=== PATIENT | male | born 1990 | race Caucasian/White ===

== ENCOUNTER → 2018-07-26 09:47 | Outpatient (CLI) | payer BC, SELFPAY ==
[2018-07-26 10:33] LABS: Cholesterol 228 mg/dL (200); Glucose 86 mg/dL (74-106)
== END ==
PROVIDERS: Family Provider Family Medicine; PCP Family Medicine; Visit Provider Nurse Practitioner Family
DX: Z00.00 Encounter for general adult medical examination without abnormal findings (principal)
CPT/HCPCS: 36415; 82465; 82947

== ENCOUNTER → 2019-07-11 | Outpatient (CLI) | payer BC, SELFPAY ==
[2019-07-11 10:32] LABS: Anion Gap 8 (5-15); BUN 10 mg/dL (7-18); BUN/Creat Ratio 9.6 RATIO (10-20); Calcium,Total 8.9 mg/dL (8.5-10.1); Chloride 109 mmol/L (98-107); Cholesterol 201 mg/dL (200); Creatinine, Serum 1.04 mg/dL (0.70-1.30); EST Glomerular Filtration Rate 88 mL/min (>60); Est Glom Filt Rate - Afr Amer 107 mL/min (>60); Glucose 81 mg/dL (74-106); High Density Lipoprotein 28 mg/dL; Potassium 4.1 mmol/L (3.5-5.1); Sodium Level 144 mmol/L (136-145); Triglycerides 311 mg/dL; Very Low Density Lipoprotein 62 mg/dL (5-40)
== END | disposition home or self-care (01) ==
LOC: LAB.FUTURE 09:02 → LAB 10:53
PROVIDERS: Family Provider Family Medicine; PCP Family Medicine; Referring Provider Family Medicine; Visit Provider Family Medicine
DX: E78.5 Hyperlipidemia, unspecified (principal)
CPT/HCPCS: 36415; 80048; 80061

== ENCOUNTER → 2020-08-13 10:11 | Outpatient (CLI) | payer BC, SELFPAY ==
[2020-08-13 11:13] LABS: Anion Gap 2 (5-15); BUN 12 mg/dL (7-18); BUN/Creat Ratio 11.4 RATIO (10-20); Calcium,Total 8.8 mg/dL (8.5-10.1); Chloride 111 mmol/L (98-107); Cholesterol 212 mg/dL (200); Creatinine, Serum 1.05 mg/dL (0.70-1.30); EST Glomerular Filtration Rate 87 mL/min (>60); Est Glom Filt Rate - Afr Amer 105 mL/min (>60); Glucose 85 mg/dL (74-106); High Density Lipoprotein 36 mg/dL; Potassium 4.2 mmol/L (3.5-5.1); Sodium Level 143 mmol/L (136-145); Triglycerides 183 mg/dL; Very Low Density Lipoprotein 37 mg/dL (5-40)
[2020-08-17 08:12] LABS: Vitamin D,25 Hydroxy 26.3 ng/mL
== END ==
PROVIDERS: PCP Family Medicine; Referring Provider Family Medicine; Visit Provider Family Medicine
DX: Z00.00 Encounter for general adult medical examination without abnormal findings (principal)
CPT/HCPCS: 36415; 80048; 80061; 82306

== ENCOUNTER → 2021-08-05 | Outpatient (CLI) | payer BC, SELFPAY ==
[2021-08-05 09:53] LABS: Hemoglobin A1c 5.1 % (3.8-5.6)
[2021-08-05 09:58] LABS: Cholesterol 215 mg/dL (200); High Density Lipoprotein 31 mg/dL; Triglycerides 356 mg/dL; Very Low Density Lipoprotein 71 mg/dL (5-40)
== END | disposition home or self-care (01) ==
PROVIDERS: PCP Family Medicine; Referring Provider Family Medicine; Visit Provider Family Medicine
DX: E78.5 Hyperlipidemia, unspecified (principal)
CPT/HCPCS: 36415; 80061; 83036

== ENCOUNTER → 2024-07-10 | Outpatient (CLI) | payer BC, SELFPAY ==
[2024-07-10 12:59] LABS: Anion Gap 5 (5-15); BUN 12 mg/dL (7-18); BUN/Creat Ratio 11.7 RATIO (10-20); Calcium,Total 9.3 mg/dL (8.5-10.1); Chloride 108 mmol/L (98-107); Cholesterol 217 mg/dL (200); Creatinine, Serum 1.03 mg/dL (0.70-1.30); EST Glomerular Filtration Rate 87 mL/min (>60); Est Glom Filt Rate - Afr Amer 105 mL/min (>60); Glucose 93 mg/dL (74-106); High Density Lipoprotein 34 mg/dL; Potassium 3.8 mmol/L (3.5-5.1); Sodium Level 139 mmol/L (136-145); Triglycerides 170 mg/dL; Very Low Density Lipoprotein 34 mg/dL (5-40)
== END | disposition home or self-care (01) ==
LOC: MTLAB 09:55
PROVIDERS: PCP Family Medicine; Referring Provider Family Medicine; Visit Provider Family Medicine
DX: Z00.00 Encounter for general adult medical examination without abnormal findings (principal)
CPT/HCPCS: 36415; 80048; 80061

== ENCOUNTER → 2025-07-09 | Outpatient (CLI) | payer BC, SELFPAY ==
--- OUTSIDE RECORDS SUMMARY | 2025-07-09 15:46 | XMS RPT_ITS | CCD ---
Author Organization [facility] Inform ion Partnership SNACK BAR ATTENDANT [facility] Care Team Providers Care Hand Tube Bender Name Role Phone Lio Romero Primary Care Provider MANOJ Mayo Attending LIO Davis Primary Care MANOJ Murillo Attending LIO Mistry Primary Care UnavailLio Whitaker Attending Unavailable Lio Jeff Referring Lio Torres Primary Care Unavailable Medications Completed/Discontinued Medications Medication Drug Class(es) Dates Sig (Normalized) Sig (Original) benzoyl peroxide 40 mg/ml medicated liquid soap (3 sources) Start: 03-18-2006 BREVOXYL-4 CREAMY WASH 4 % TOPICAL LIQUID wash face daily large size 6 03/18/2006 Active Comment on above: wash face daily benzoyl peroxide 0.05 mg/mg / clindamycin phosphate 0.012 mg/mg topical gel (3 sources) Lincosamide Antibacterial Start: 03-18-2006 DUAC 1 %-5 % TOPICAL GEL apply to affected areas on face once in the morning large size tube 12 03/18/2006 Active Comment on above: apply to affected ar eas on face once in the morning Lidocaine (1 source) Antiarrhythmic, Amide Local Anesthetic Start: 06-13-2023 End: 06-13-2023 lidocaine 10 mg/mL (1 %) 100 mg injection (XYLOCAINE) tretinoin 0.0004 mg/mg topical gel (3 sources) Retinoid Start: 03-18-2006 RETIN-A MICRO 0.04 % TOPICAL GEL apply to face top qhs large size tube 12 03/18/2006 Active Comment on above: apply to face top qh s Problems Problem Classification Problem Date Documented Da te Episodic/Chronic Contraceptive and procreative management (3 sources) Patient encounter status; Translations: [Encounter for sterilization] Onset: 05-29-2023 06-13-2023 Episodic Other skin disorders (3 sources) Acne; Translations: [Other acne] Onset: 05-11-2004 05-11-2004 Episodic Results Test Name Value Interpretation Reference Range Facil ity Basic Metabolic Profile (BMP )on 07-10-2024 BUN/CRE 11.7 RATIO Normal 10-20 [facility] Comment on above: Performed By: #### L 500.4100, L500.2500 #### [facility] [address] [place], [address] CA,Total 9.3 mg/dL Normal 8.5-10.1 [facility] Comment on above: Performed By: #### L 500.4100, L500.2500 #### [facility] [address] [place], [address] Chloride [Moles/Vol] 108 mmol/L High 98-107 [facility] Comment on above: Performed By: #### L 500.4100, L500.2500 #### [facility] [address] [place], [address] CO2 [Moles/Vol] 26.0 mmol/L Normal 21.0-32.0 [facility] Comment on above: Performed By: #### L 500.4100, L500.2500 #### [facility] [address] [place], [address] Creatinine [Mass/Vol] 1.03 mg/dL Normal 0.70-1.30 [facility] Comment on above: Result Comment: The validity of the calculated GFR GFRAA in patients over 70 years has not been determined. Clinical correlation is essential. Performed By: #### L 500.4100, L500.2500 #### [facility] [address] [place], [address] EST GFR - AA 105 mL/min Normal >60 [facility] Comment on above: Result Comment: Afri can Taiwanese GFR Calc Performed By: #### L 500.4100, L500.2500 #### [facility] [address] [place], [address] GAP 5 Normal 5-15 [facility] Comment on above: Performed By: #### L 500.4100, L500.2500 #### [facility] [address] [place], [address] GFR/1.73 sq M.predicted among non-blacks MDRD (S/P/Bld) [Vol rate/Area] 87 mL/min/{1.73_m2} Normal >60 [facility] Comment on above: Result Comment: Non- GFR Calc Performed By: #### L 500.4100, L500.2500 #### [facility] [address] [place], [address] Glucose [Mass/Vol] 93 mg/dL Normal 74-[address] [facility] Comment on above: Performed By: #### L 500.4100, L500.2500 #### [facility] [address] [place], [address] Potassium [Moles/Vol] 3.8 mmol/L Normal 3.5-5.1 [facility] Comment on above: Performed By: #### L 500.4100, L500.2500 #### [facility] [address] [place], [address] Sodium [Moles/Vol] 139 mmol/L Normal 136-[address] [facility] Comment on above: Performed By: #### L 500.4100, L500.2500 #### [facility] [address] [place], [address] Urea nitrogen [Mass/Vol] 12 mg/dL Normal 7-18 [facility] Comment on above: Performed By: #### L 500.4100, L500.2500 #### [facility] [address] [place], [address] Lipid Profileon 07-10-2024 Cholesterol [Mass/Vol] 217 mg/dL High 200 [facility] Comment on above: Result Comment: <200 mg/dL Desirable 200-240 mg/dL Borderline >240 mg/dL High Risk Performed By: #### L 500.4100, L500.2500 #### [facility] [address] [place], [address] Cholesterol in HDL [Mass/Vol] 34 mg/dL Low [facility] Comment on above: Result Comment: The drugs N-Acetylcysteine and Metamizole may falsely depress this assay. Reference Range HDL <40 mg/dL Low HDL Cholesterol HDL >or= 60 mg/dL High HDL Cholesterol Performed By: #### L 500.4100, L500.2500 #### [facility] [address] [place], [address] Cholesterol in LDL [Mass/Vol] 149 mg/dL High 0-130 [facility] Comment on above: Performed By: #### L 500.4100, L500.2500 #### [facility] [address] [place], [address] Cholesterol in VLDL [Mass/Vol] 34 mg/dL Normal 5-40 [facility] Comment on above: Performed By: #### L 500.4100, L500.2500 #### [facility] [address] [place], [address] Triglyceride [Mass/Vol] 170 mg/dL Normal [facility] Comment on above: Result Comment: The drugs N-Acetylcysteine and Metamizole may falsely depress this assay. Serum Triglycerides Reference Interval Normal <150 mg/dL Borderline high 150 - 199 mg/dL High 200 - 499 mg/dL Very High > or = 500 mg/dL Performed By: #### L 500.4100, L500.2500 #### [facility] [address] [place], [address] [facility]il[facility] DELBERT ABERNATHY ([id number]) 1990 M Date Time Provider Department 09/13/23 MANOJ COLES During your visit today, we recorded the following information about you: Laina Marx RN 09/13/2023 12:10 PM Signed Patient called in and left voicemail asking if his basic semen analysis could be changed to post vasectomy check' Thanks, LOUISE Richardson Rebecca, LPN 09/13/2023 1:[address] Coles, Can you sign the order I have attached. The diagnosis is post vasectomy. This is a standard order we use. RODRIGUEZ Paris Rebecca, LPN 09/16/2023 8:59 AM Signed The one I attached is the one we always use. It's the diagnosis that matters for insurance purposes. RODRIGUEZ Paris Rebecca, LPN 09/16/2023 4:03 PM Signed Mailed order to patient Yolanda Gurrola LPN Allergies As of Date: 09/13/2023 (No Known Allergies) Date Reviewed: 06/13/2023 Reviewed by: Yolanda Gurrola LPN - Fully Assessed Reason for Visit: Patient Question [1477] Cmt: New order for semen analysis Primary Visit Diagnosis:Status post vasectomy [Z98.52] Order(s):BASIC SEMEN ANALYSIS [SQBASA] Order #: [id number]: 1 FUTURE Prescriptions as of 09/16/2023 - RETIN-A MICRO 0.04 % TOPICAL GEL apply to face top qhs - DUAC 1 %-5 % TOPICAL GEL apply to affected areas on face once in the morning - BREVOXYL-4 CREAMY WASH 4 % TOPICAL LIQUID wash face daily Problem List As Of Date 09/13/2023 Noted Resolved ACNE NEC [L70.8] 05/11/2004 Encounter Status:Closed by MANOJ COLES on 09/13/23 [facility] CNOVon 06-13-2023 CNOV Office Visit (UROLAG ) DELBERT ABERNATHY ([id number]) 1990 M Date Time Provider Department 06/13/23 2:00 PM MANOJ COLES UROLAG During your visit today, we recorded the following information about you: Pulse Blood pressure Height 97/minute 144/91 1.829 m Manoj Coles MD 06/13/2023 3:10 PM Signed 06/13/2023 UNIVERSAL PROTOCOL / SAFETY CHECKLIST Procedure to be Performed: vas Sign In: A Moment of CARE was completed. Personnel directly involved with the procedure wore the appropriate PPE (Personal Protective Equipment). Patient/Surrogate Stated/Verified: PATIENT VERIFIED(optional for EMERGENT procedures): Patient name, Date of , Relevant allergies, and The intended procedure Time Out Communication: Intended patient and procedure match the source documents. Consent documented and matches the intended procedure. Relevant labs, photos, and/or imaging studies have been reviewed. Sign Out: SIGN OUT (optional for EMERGENT procedures): No specimen collected. Manoj Coles MD HPI: 33 year old male reports for vasectomy. He again confirms he desires permanent sterilization and has no desire to father children in the future. Procedure: Vasectomy Anatomic Site: Vas Deferens Approach: Percutaneous Device: None Qualifier: None PMHx/PSHx: see above, otherwise unchanged Rx: No scheduled NSAIDs or blood thinner for past 5 days. ROS: No new or inguinal complaints Labs: None Imaging: None PE: General: Well masculinized, well nourished male Psych: euthymic, NAD Neuro: AANDOx3 exam: see below. Procedure: Vasectomy Patient?s identity was confirmed, written informed consent was obtained, and the time out performed before the procedure was initiated The patient was placed in a supine position and the genitalia were prepped and draped in a sterile manner. Examination revealed no scrotal lesions, descended testicles bilaterally without masses and readily palpable vasa deferens. The right scrotal skin and cord structures was anesthetized with 5 cc of 2% lidocaine without epinephrine. A No-scapel technique was used to isolated and remove a small portion of the vas deferens. The vas sheath was opened. The vas deferens was clamped and ligated. The inner lumina of the testicular and abdominal ends of the vas were cauterized. Clips were applied to the testicular end of the vas and to the abdominal end. Adequate hemostasis was achieved. Both ends of the vas deferens were delivered back into the scrotum by fascia.The procedure was repeated on the patient?s left side. The patient tolerated the procedure well. Postoperative care, limitations, and expectations were reviewed with the patient. He was again instructed to use an alternate form of control until he is notified that his postprocedure semen analysis reveals no sperm. Imp: S/p vasectomy Plan: Supply Semen sample for analysis in 3 months Follow up as needed Manoj Coles MD Allergies As of Date: 06/13/2023 (No Known Allergies) Date Reviewed: 06/13/2023 Reviewed by: Yolanda Gurrola LPN - Fully Assessed Reason for Visit: Sterilization (Elective) [340] Cmt: vasectomy Primary Visit Diagnosis:Encounter for sterilization [Z30.2] Order(s):BASIC SEMEN ANALYSIS [SQBASA] Order #: [id number]: 1 FUTURE [] lidocaine 10 mg/mL (1 %) 100 mg injection (XYLOCAINE)Disp: Rfl: Prescriptions as of 06/13/2023 - RETIN-A MICRO 0.04 % TOPICAL GEL apply to face top qhs - DUAC 1 %-5 % TOPICAL GEL apply to affected areas on face once in the morning - BREVOXYL-4 CREAMY WASH 4 % TOPICAL LIQUID wash face daily Problem List As Of Date 06/13/2023 Noted Resolved ACNE NEC [L70.8] 05/11/2004 Prescriptions ordered this encounter Disp Refills Start End LIDOCAINE HCL 10 MG/ML (1 %) INJECTI* 06/13/2023 06/13/2023 Route: INTRADERM. Encounter Status:Closed by MANOJ COLES on 06/13/23 [facility] CNOVon 05-29-2023 CNOV Office Visit (URCANT ) DELBERT ABERNATHY ([id number]) 1990 M Date Time Provider Department 05/29/23 1:00 PM MANOJ COLES During your visit today, we recorded the following information about you: Pulse Blood pressure Weight Height 79/minute 157/90 128.9 kg 1.829 m Manoj Coles MD 05/29/2023 1:15 PM Signed Delbert Abernathy is a 33 year old male who presents with discuss and no cut vasectomy he will bring a bag ice with him some will drive him. He will get 3 Halcion he might only take 2. We talked about good that overmedicate him. Also he will have 5 days of Keflex to take 1 in the morning 1 during lunch and then will do the vas. Both his vas is are easy to palpate scrotum hangs down pretty good Review of Systems- Reviewed and otherwise non-contributory. BP 157/90 (BP Site: Right Arm, BP Position: Sitting, BP Cuff Size: Large Adult) Pulse 79 Ht 182.9 cm (6') Wt 128.9 kg (284 lb 3.2 oz) BMI 38.54 kg/m? History reviewed. No pertinent past medical history. PAST SURGICAL HISTORY Procedure Laterality Date NONE Current Outpatient Medications Medication Sig Dispense Refill triazolam (HALCION) 0.25 mg tablet 3 tablet PO Q-1 hour prior to procedure 3 tablet 0 cephALEXin (KEFLEX) 500 mg capsule Take 1 capsule by mouth four times daily for 5 days. 20 capsule 0 RETIN-A MICRO 0.04 % TOPICAL GEL apply to face top qhs large size tube 12 DUAC 1 %-5 % TOPICAL GEL apply to affected areas on face once in the morning large size tube 12 BREVOXYL-4 CREAMY WASH 4 % TOPICAL LIQUID wash face daily large size 6 No current facility-administered medications for this visit. (Z30.2) Encounter for sterilization (primary encounter diagnosis) Plan: triazolam (HALCION) 0.25 mg tablet, cephALEXin (KEFLEX) 500 mg capsule Manoj Coles MD This note was generated with voice recognition software and may contain errors, including spelling, grammar, syntax and misrecognition of what was dictated, that are not fully corrected. Allergies As of Date: 05/29/2023 (No Known Allergies) Date Reviewed: 05/29/2023 Reviewed by: Yolanda Gurrola LPN - Fully Assessed Reason for Visit: New Patient [172] Sterilization (Elective) [340] Cmt: Vas consult Primary Visit Diagnosis:Encounter for sterilization [Z30.2] Order(s):triazolam (HALCION) 0.25 mg tablet3 tablet PO Q-1 hour prior to procedureDisp: 3 tabletRfl: 0 cephALEXin (KEFLEX) 500 mg capsuleTake 1 capsule by mouth four times daily for 5 days.Disp: 20 capsuleRfl: 0 Prescriptions as of 05/29/2023 - triazolam (HALCION) 0.25 mg tablet 3 tablet PO Q-1 hour prior to procedure - cephALEXin (KEFLEX) 500 mg capsule Take 1 capsule by mouth four times daily for 5 days. - RETIN-A MICRO 0.04 % TOPICAL GEL apply to face top qhs - DUAC 1 %-5 % TOPICAL GEL apply to affected areas on face once in the morning - BREVOXYL-4 CREAMY WASH 4 % TOPICAL LIQUID wash face daily Problem List As Of Date 05/29/2023 Noted Resolved ACNE NEC [L70.8] 05/11/2004 Prescriptions ordered this encounter Disp Refills Start End TRIAZOLAM 0.25 MG TABLET 3 ta* 0 05/29/2023 05/30/2023 Si tablet PO Q-1 hour prior to procedure CEPHALEXIN 500 MG CAPSULE 20 c* 0 05/29/2023 06/03/2023 Route: ORAL Sig: Take 1 capsule by mouth four times daily for 5 days. Disposition: Return for vas. Follow-up and Disposition History for Encounter Date Provider Department Center 05/29/2023 [id number]-HNEUCMANOJ COLES *CHERI Salgado MD [facility] Encounter Status:Closed by MANOJ COLES on 05/29/23 [facility] CNOVon 05-26-2019 CNOV Office Visit (UCWSTR ) DELBERT ABERNATHY ([id number]) 1990 M Date Time Provider Department 05/26/19 8:00 AM KARINA MOY [facility] During your visit today, we recorded the following information about you: Temperature Pulse Respiration Blood pressure 98.1 degrees 72/minute 16/minute 122/80 Weight 124.8 kg Karina Moy [employer] 05/26/2019 8:26 AM Signed Subjective HPI Pt presents with c/o right eye drainage x several days. Had leftover polytrim from daughter's pink eye a month ago so he began using drops yesterday. Denies fever, chills, myalgias, eye pain, vision change, URI sx. Review of Systems Constitutional: Negative for chills and fever. HENT: Negative. Eyes: Positive for discharge and redness. Negative for blurred vision, double vision, photophobia and pain. Skin: Negative. Objective Physical Exam Constitutional: He is oriented to person, place, and time and well-developed, well-nourished, and in no distress. No distress. HENT: Head: Normocephalic. Right Ear: Hearing, tympanic membrane, external ear and ear canal normal. Left Ear: Hearing, tympanic membrane, external ear and ear canal normal. Nose: Nose normal. No mucosal edema. Mouth/Throat: Uvula is midline, oropharynx is clear and moist and mucous membranes are normal. No oropharyngeal exudate. Eyes: Pupils are equal, round, and reactive to light. EOM are normal. Right eye exhibits no discharge. Left eye exhibits no discharge. Right conjunctiva is injected (mild). Left conjunctiva is injected (mild). Pupils unequal: vision 20/20 via lb card. Neck: Neck supple. Cardiovascular: Normal rate, regular rhythm and normal heart sounds. Exam reveals no gallop and no friction rub. No murmur heard. Pulmonary/Chest: Effort normal and breath sounds normal. No respiratory distress. He has no wheezes. He has no rales. Neurological: He is alert and oriented to person, place, and time. Skin: Skin is warm and dry. He is not diaphoretic. BP 122/80 Pulse 72 Temp 36.7 ?C (98.1 ?F) (Tympanic) Resp 16 Wt 124.8 kg (275 lb 3.2 oz) .Patient presents with: right eye irritation: x 1 day No past medical history on file. No past surgical history on file. ALLERGIES Patient has no known allergies. MEDICATIONS trimethoprim-polymyxi n eye drops (POLYTRIM) ophthalmic solution Use 1 Drop in both eyes every 6 hours for 7 days. Use in the affected eye. RETIN-A MICRO 0.04 % TOPICAL GEL apply to face top qhs DUAC 1 %-5 % TOPICAL GEL apply to affected areas on face once in the morning BREVOXYL-4 CREAMY WASH 4 % TOPICAL LIQUID wash face daily No family history on file. Social History Tobacco Use - Smoking status: Never Smoker - Smokeless tobacco: Never Used Substance Use Topics - Alcohol use: Not on file - Drug use: Not on file ASSESSMENT/PLAN: 1. Eye irritation - ICD9: 379.99, ICD10: H57.89 - POLYMYXIN B SULFATE 10,000 UNIT-TRIMETHOPRIM 1 MG/ML EYE DROPS The patient is instructed to return or seek emergency treatment if symptoms become worse or with any acute change in condition. The patient verbalizes understanding and is in agreement with plan of care. Karina Moy CNP Referring Provider: SELF [200] Allergies As of Date: 05/26/2019 (No Known Allergies) Date Reviewed: 05/26/2019 Reviewed by: Wilda Lewis LPN - Fully Assessed Reason for Visit: right eye irritation [Other] Cmt: x 1 day Primary Visit Diagnosis:Eye irritation [H57.89] Order(s):trimethoprim -polymyxin eye drops (POLYTRIM) ophthalmic solutionUse 1 Drop in both eyes every 6 hours for 7 days. Use in the affected eye.Disp: 1.4 mLRfl: 0 Prescriptions as of 05/26/2019 Sig: POLYMYXIN B SULFATE 10,000 UN* Use 1 Drop in both eyes every* * RETIN-A MICRO 0.04 % TOPICAL * apply to face top qhs Patient not taking: No sig reported * DUAC 1.2 % (1 % BASE)-5 % TOP* apply to affected areas on fa* Patient not taking: No sig reported * BREVOXYL-4 CREAMY WASH 4 % TO* wash face daily Patient not taking: No sig reported Problem List As Of Date 05/26/2019 Noted Resolved ACNE NEC [L70.8] INVALID FOR* Prescriptions ordered this encounter Disp Refills Start End POLYMYXIN B SULFATE 10,000 UNIT-TRIM* 1.4 * 0 05/26/2019 06/02/2019 Route: BOTH EYES Sig: Use 1 Drop in both eyes every 6 hours for 7 days. Use in the affected eye. Encounter Status:Closed by KARINA MOY CNP on 05/26/19 Normal [facility] PROGRESSon 05-26-2019 PROGRESS HNO ID: [id number] Author: Karina Moy Service: ? Author Type: Nurse Practitioner Type: Progress Notes Filed: 05/26/2019 8:26 AM Note Text: Subjective HPI Pt presents with c/o right eye drainage x several days. Had leftover polytrim from daughter's pink eye a month ago so he began using drops yesterday. Denies fever, chills, myalgias, eye pain, vision change, URI sx. Review of Systems Constitutional: Negative for chills and fever. HENT: Negative. Eyes: Positive for discharge and redness. Negative for blurred vision, double vision, photophobia and pain. Skin: Negative. Objective Physical Exam Constitutional: He is oriented to person, place, and time and well-developed, well-nourished, and in no distress. No distress. HENT: Head: Normocephalic. Right Ear: Hearing, tympanic membrane, external ear and ear canal normal. Left Ear: Hearing, tympanic membrane, external ear and ear canal normal. Nose: Nose normal. No mucosal edema. Mouth/Throat: Uvula is midline, oropharynx is clear and moist and mucous membranes are normal. No oropharyngeal exudate. Eyes: Pupils are equal, round, and reactive to light. EOM are normal. Right eye exhibits no discharge. Left eye exhibits no discharge. Right conjunctiva is injected (mild). Left conjunctiva is injected (mild). Pupils unequal: vision 20/20 via lb card. Neck: Neck supple. Cardiovascular: Normal rate, regular rhythm and normal heart sounds. Exam reveals no gallop and no friction rub. No murmur heard. Pulmonary/Chest: Effort normal and breath sounds normal. No respiratory distress. He has no wheezes. He has no rales. Neurological: He is alert and oriented to person, place, and time. Skin: Skin is warm and dry. He is not diaphoretic. BP 122/80 Pulse 72 Temp 36.7 ?C (98.1 ?F) (Tympanic) Resp 16 Wt 124.8 kg (275 lb 3.2 oz) .Patient presents with: right eye irritation: x 1 day No past medical history on file. No past surgical history on file. ALLERGIES Patient has no known allergies. MEDICATIONS trimethoprim-polymyxi n eye drops (POLYTRIM) ophthalmic solution Use 1 Drop in both eyes every 6 hours for 7 days. Use in the affected eye. RETIN-A MICRO 0.04 % TOPICAL GEL apply to face top qhs DUAC 1 %-5 % TOPICAL GEL apply to affected areas on face once in the morning BREVOXYL-4 CREAMY WASH 4 % TOPICAL LIQUID wash face daily No family history on file. Social History Tobacco Use - Smoking status: Never Smoker - Smokeless tobacco: Never Used Substance Use Topics - Alcohol use: Not on file - Drug use: Not on file ASSESSMENT/PLAN: 1. Eye irritation - ICD9: 379.99, ICD10: H57.89 - POLYMYXIN B SULFATE 10,000 UNIT-TRIMETHOPRIM 1 MG/ML EYE DROPS The patient is instructed to return or seek emergency treatment if symptoms become worse or with any acute change in condition. The patient verbalizes understanding and is in agreement with plan of care. Karina Moy CNP Normal [facility] Vital Signs Date Time Vital Sign Value Performing Clinician Tristai joss 06-13-2023 14:29-0400 Body height 182.9 cm Manoj Coles MD Work Phone: [facility] 06-13-2023 14:29-0400 Diastolic blood pressure 91 mm[Hg] Manoj Coles MD Work Phone: [facility] 06-13-2023 14:29-0400 Heart rate 97 /min Manoj Coles MD Work Phone: [facility] 06-13-2023 14:29-0400 Systolic blood pressure 144 mm[Hg] Manoj Coles MD Work Phone: [facility] Encounters Encounter Date Encounter Type Care Provider Facility Start: 07-24-2024 Encounter for genera l adult medical examination without abnormal findings Lio Jeff [facility] Start: 07-10-2024 End: 07-10-2024 ambulatory [facility] Facility:[facility] Start: 09-13-2023 ambulatory Manoj Coles MD Work Phone: Urology Comment on above: Post vasectomy sampl e locations Start: 09-13-2023 E-mail encounter fro m caregiver Manoj Coles MD Work Phone: [employer] [employer] Start: 09-13-2023 Telephone encounter Manoj Coles MD Work Phone: Urology Comment on above: Patient Question (Ne w order for semen analysis) Start: 06-13-2023 End: 06-13-2023 ambulatory MANOJ COLES Facility:[facility] Start: 06-13-2023 End: 06-13-2023 Patient encounter procedure Manoj Coles MD Work Phone: Urology Comment on above: Encounter for steril ization (Primary Dx) Start: 05-29-2023 End: 05-29-2023 ambulatory MANOJ COLES Facility:[id number] Procedures Date Procedure Procedure Detail Performing Clinician Start: 06-13-2004 Lipid 1996 panel - Serum or Plasma Manoj Coles MD Work Phone: H/O: vasectomy Status post vasectomy Mehul Coles MD Work Phone: Plan of Treatment Date Care Activity Detail Author Start: 09-27-2023 End: 12-27-2023 BASIC SEMEN ANALYSIS BASIC SEMEN ANALYSIS Andrology Routine Status post vasectomy Expected: 09/27/2023 (Approximate), Expires: 12/27/2023 [facility] Work Phone: Comment on above: Expected: 09/27/2023 (Approximate), Expires: 12/27/2023 Start: 09-13-2023 End: 11-13-2023 BASIC SEMEN ANALYSIS BASIC SEMEN ANALYSIS Andrology Routine Encounter for sterilization Expected: 09/13/2023 (Approximate), Expires: 11/13/2023 [facility] Work Phone: Comment on above: Expected: 09/13/2023 (Approximate), Expires: 11/13/2023 Start: 07-12-2023 Influenza vaccination C [facility] Start: 01-21-2023 Lipid 1996 panel - Serum or Plasma Lipid Screening [facility] Start: 01-21-2023 LIPID SCREEN LIPID SCREEN [facility] Start: 11-11-2022 DEPRESSION ASSESSMENT DEPRESSION ASS ESSMENT [facility] Start: 01-21-2007 Urine microalbumin profile [facility] Start: 01-21-2006 HEPATITIS C SCREENING HEPATITIS C SC REENING [facility] Start: 01-21-2006 HIV SCREENING HIV SCREENING [facility] Start: 1988 COVID-19 VACCINE (#1) COVID-19 VACCI NE (#1) [facility] Start: 1988 HEPATITIS B (1 of 3 - 3-dose series) HEPATITIS B (1 of 3 - 3-dose series) [facility] Start: 1988 Hepatitis B Vaccine (1 of 3 - 3-dose series) Hepatitis B Vaccine (1 of 3 - 3-dose series) [facility] Payers Date Payer Category Payer Self-pay 2011 Unknown [employer] PPO OOS [id number] 2011-Present [phone] [id number] [place] [address] PPO [id number] 2011 Unknown [id number] Unknown [id number] Social History Date Type Detail Facility Start: 05-29-2023 Tobacco smoking stat us VTIS Never smoked tobacco [facility] Start: 05-29-2023 Tobacco use and exposure Smoke less tobacco non-user [facility] Start: 06-13-2023 Alcohol intake Current drinke r of alcohol (finding) [facility] Start: 06-13-2023 History of Social function [facility] Start: 06-13-2023 Tobacco use panel [facility] National Score (1-10 0), lower number is lower risk 69 [facility] Start: 05-29-2023 Alcohol Comment maybe socially if th at [facility] Start: 1988 Sex Assigned At Not on file C [facility] Note 09-13-2023 Telephone Encounter - Yolanda Gurrola LPN - 09/13/2023 1:57 PM EDTTelephone Encounter - Laina Marx RN - 09/13/2023 12:09 PM EDT Note Date & Type Note Facility 09-13-2023 Miscellaneous Notes Formattin g of this note might be different from the original. Dr. Coles, Can you sign the order I have attached. The diagnosis is post vasectomy. This is a standard order we use. Yolanda Gurrola LPN Patient called in and left voicemail asking if his basic semen analysis could be changed to post vasectomy check' Thanks, Laina Marx, RN documented in this encounter [facility] Procedure note 06-13-2023 Note Date & Type Note Facility 06-13-2023 Note HNO ID: [id number] Author: Manoj Coles MD Service: ? Author Type: Physician Type: Procedures Filed: 06/13/2023 3:10 PM Note Text: 06/13/2023 UNIVERSAL PROTOCOL / SAFETY CHECKLIST Procedure to be Performed: vas Sign In: A Moment of CARE was completed. Personnel directly involved with the procedure wore the appropriate PPE (Personal Protective Equipment). Patient/Surrogate Stated/Verified: PATIENT VERIFIED(optional for EMERGENT procedures): Patient name, Date of , Relevant allergies, and The intended procedure Time Out Communication: Intended patient and procedure match the source documents. Consent documented and matches the intended procedure. Relevant labs, photos, and/or imaging studies have been reviewed. Sign Out: SIGN OUT (optional for EMERGENT procedures): No specimen collected. Manoj Coles MD HPI: 33 year old male reports for vasectomy. He again confirms he desires permanent sterilization and has no desire to father children in the future. Procedure: Vasectomy Anatomic Site: Vas Deferens Approach: Percutaneous Device: None Qualifier: None PMHx/PSHx: see above, otherwise unchanged Rx: No scheduled NSAIDs or blood thinner for past 5 days. ROS: No new or inguinal complaints Labs: None Imaging: None PE: General: Well masculinized, well nourished male Psych: euthymic, NAD Neuro: AANDOx3 exam: see below. Procedure: Vasectomy Patient?s identity was confirmed, written informed consent was obtained, and the time out performed before the procedure was initiated The patient was placed in a supine position and the genitalia were prepped and draped in a sterile manner. Examination revealed no scrotal lesions, descended testicles bilaterally without masses and readily palpable vasa deferens. The right scrotal skin and cord structures was anesthetized with 5 cc of 2% lidocaine without epinephrine. A No-scapel technique was used to isolated and remove a small portion of the vas deferens. The vas sheath was opened. The vas deferens was clamped and ligated. The inner lumina of the testicular and abdominal ends of the vas were cauterized. Clips were applied to the testicular end of the vas and to the abdominal end. Adequate hemostasis was achieved. Both ends of the vas deferens were delivered back into the scrotum by fascia.The procedure was repeated on the patient?s left side. The patient tolerated the procedure well. Postoperative care, limitations, and expectations were reviewed with the patient. He was again instructed to use an alternate form of control until he is notified that his postprocedure semen analysis reveals no sperm. Imp: S/p vasectomy Plan: Supply Semen sample for analysis in 3 months Follow up as needed Manoj Coles MD [facility] Procedure note 06-13-2023 Manoj Coles MD - 06/13/2023 3:09 PM EDT Note Date & Type Note Facility 06-13-2023 Procedure note 06/13/2023 UNIVERSAL PROTOCOL / SAFETY CHECKLIST Procedure to be Performed: vas Sign In: A Moment of CARE was completed. Personnel directly involved with the procedure wore the appropriate PPE (Personal Protective Equipment). Patient/Surrogate Stated/Verified: PATIENT VERIFIED(optional for EMERGENT procedures): Patient name, Date of , Relevant allergies, and The intended procedure Time Out Communication: Intended patient and procedure match the source documents. Consent documented and matches the intended procedure. Relevant labs, photos, and/or imaging studies have been reviewed. Sign Out: SIGN OUT (optional for EMERGENT procedures): No specimen collected. Manoj Coles MD HPI: 33 year old male reports for vasectomy. He again confirms he desires permanent sterilization and has no desire to father children in the future. Procedure: Vasectomy Anatomic Site: Vas Deferens Approach: Percutaneous Device: None Qualifier: None PMHx/PSHx: see above, otherwise unchanged Rx: No scheduled NSAIDs or blood thinner for past 5 days. ROS: No new or inguinal complaints Labs: None Imaging: None PE: General: Well masculinized, well nourished male Psych: euthymic, NAD Neuro: A&Ox3 exam: see below. Procedure: Vasectomy Patient s identity was confirmed, written informed consent was obtained, and the time out performed before the procedure was initiated The patient was placed in a supine position and the genitalia were prepped and draped in a sterile manner. Examination revealed no scrotal lesions, descended testicles bilaterally without masses and readily palpable vasa deferens. The right scrotal skin and cord structures was anesthetized with 5 cc of 2% lidocaine without epinephrine. A No-scapel technique was used to isolated and remove a small portion of the vas deferens. The vas sheath was opened. The vas deferens was clamped and ligated. The inner lumina of the testicular and abdominal ends of the vas were cauterized. Clips were applied to the testicular end of the vas and to the abdominal end. Adequate hemostasis was achieved. Both ends of the vas deferens were delivered back into the scrotum by fascia.The procedure was repeated on the patient s left side. The patient tolerated the procedure well. Postoperative care, limitations, and expectations were reviewed with the patient. He was again instructed to use an alternate form of control until he is notified that his postprocedure semen analysis reveals no sperm. Imp: S/p vasectomy Plan: Supply Semen sample for analysis in 3 months Follow up as needed Manoj Coles MD documented in this encounter [facility] Progress note 05-29-2023 Note Date & Type Note Facility 05-29-2023 Note HNO ID: [id number] Author: Manoj Coles MD Service: ? Author Type: Physician Type: Progress Notes Filed: 05/29/2023 1:15 PM Note Text: Delbert Abernathy is a 33 year old male who presents with discuss and no cut vasectomy he will bring a bag ice with him some will drive him. He will get 3 Halcion he might only take 2. We talked about good that overmedicate him. Also he will have 5 days of Keflex to take 1 in the morning 1 during lunch and then will do the vas. Both his vas is are easy to palpate scrotum hangs down pretty good Review of Systems- Reviewed and otherwise non-contributory. BP 157/90 (BP Site: Right Arm, BP Position: Sitting, BP Cuff Size: Large Adult) Pulse 79 Ht 182.9 cm (6') Wt 128.9 kg (284 lb 3.2 oz) BMI 38.54 kg/m? History reviewed. No pertinent past medical history. PAST SURGICAL HISTORY Procedure Laterality Date NONE Current Outpatient Medications Medication Sig Dispense Refill triazolam (HALCION) 0.25 mg tablet 3 tablet PO Q-1 hour prior to procedure 3 tablet 0 cephALEXin (KEFLEX) 500 mg capsule Take 1 capsule by mouth four times daily for 5 days. 20 capsule 0 RETIN-A MICRO 0.04 % TOPICAL GEL apply to face top qhs large size tube 12 DUAC 1 %-5 % TOPICAL GEL apply to affected areas on face once in the morning large size tube 12 BREVOXYL-4 CREAMY WASH 4 % TOPICAL LIQUID wash face daily large size 6 No current facility-administered medications for this visit. (Z30.2) Encounter for sterilization (primary encounter diagnosis) Plan: triazolam (HALCION) 0.25 mg tablet, cephALEXin (KEFLEX) 500 mg capsule Manoj Coles MD This note was generated with voice recognition software and may contain errors, including spelling, grammar, syntax and misrecognition of what was dictated, that are not fully corrected. Evaluation note Note Date & Type Note Facility Evaluation note Diagnosis Encounter for sterilization- Primary Sterilization documented in this encounter [facility] Evaluation note Note Date & Type Note Facility Evaluation note Diagnosis Status post vasectomy- Primary Vasectomy status documented in this encounter [facility] Summary Purpose Family History No Family History Records FoundNo Family History Records FoundNo Family History Records FoundNo Family History Records Found Advance Directives No Advanced Directives Records FoundNo Advanced Directives Records FoundNo Advanced Directives Records FoundNo Advanced Directives Records Found Medications Administered Section Inactive Administered Medications - up to 3 most recent administrations Medication Order MAR Action Action Date Dose Rate Site lidocaine 10 mg/mL (1 %) 100 mg injection (XYLOCAINE) 100 mg (10 mL), INTRADERMAL, ONCE, 1 dose, On Bonnie 06/13/23 at 1500 Given by LIP 06/13/2023 2:37 PM EDT 100 mg Other Additional Source Comments (unrecognized sect ion and content) No Status Records FoundNo Status Records FoundNo Status Records FoundNo Status Records Found INFORMATION SOURCE (unrecogn ized section and content) DATE CREATED AUTHOR 05/27/2019 [facility] DATE CREATED AUTHOR AUTHOR'S ORGANIZ ATION 06/14/2023 [facility] DATE CREATED AUTHOR AUTHOR'S ORGANIZ ATION 09/17/2023 [facility] DATE CREATED AUTHOR AUTHOR'S ORGANIZ ATION 07/27/2024 [facility] Source Comments (unrecognize d section and content) In the event this informatio n is protected by the Federal Confidentiality of Alcohol and Drug Abuse Patient Records regulations: The Federal rules restrict any use of the information to criminally investigate or prosecute any alcohol or drug abuse patient.[facility] the event this information is protected by the Federal Confidentiality of Alcohol and Drug Abuse Patient Records regulations: The Federal rules restrict any use of the information to criminally investigate or prosecute any alcohol or drug abuse patient.[facility] the event this information is protected by the Federal Confidentiality of Alcohol and Drug Abuse Patient Records regulations: The Federal rules restrict any use of the information to criminally investigate or prosecute any alcohol or drug abuse patient.[facility] Reason for Visit (unrecogniz ed section and content) Reason Comments Sterilization (Elective) vasectomy Reason Comments Patient Question New order for semen analysis Care Teams (unrecognized sec tion and content) Hand Tube Bender Relationship Specialty Start Date End Date Lio Romero PCP - General Family Medicine 05/26/19 Hand Tube Bender Relationship Specialty Start Date End Date Lio Romero PCP - General Family Medicine 05/26/19 Hand Tube Bender Relationship Specialty Start Date End Date Lio Romero PCP - General Family Medicine 05/26/19 FOR RECORDS PERTAINING TO PATIENTS WHO ARE OR HAVE BEEN ENROLLED IN A CHEMICAL DEPENDENCY/SUBSTANCEABUSE PROGRAM, SOME INFORMATION MAY BE OMITTED. This clinical summary was aggregated from multiple sources. Caution should be exercised in using it in the provision of clinical care. This summary normalizes information from multiple sources, and as a consequence, information in this document may materially change the coding, format and clinical context of patient data. In addition, data may be omitted in some cases. CLINICAL DECISIONS SHOULD BE BASED ON THE PRIMARY CLINICAL RECORDS. [facility]. provides no warranty or guarantee of the accuracy or completeness of information in this document.
[2025-07-09 16:12] LABS: Anion Gap 13 (5-15); BUN 12 mg/dL (4-19); BUN/Creat Ratio 12.6 RATIO (10-20); Calcium,Total 9.2 mg/dL (7.6-11.0); Carbon Dioxide 22.3 mmol/L (21.0-32.0); Chloride 104 mmol/L (98-108); Cholesterol 237 mg/dL (<=200); Glucose 96 mg/dL (70-99); Low Density Lipoprotein Calc. 166 mg/dL; Potassium 3.9 mmol/L (3.3-5.1); Triglycerides 161 mg/dL; Very Low Density Lipoprotein 32 mg/dL (5-40); cholesterol:hdl ratio screen 6.12
== END | disposition home or self-care (01) ==
LOC: MTLAB 11:45
PROVIDERS: PCP Family Medicine; Visit Provider Family Medicine
DX: Z00.00 Encounter for general adult medical examination without abnormal findings (principal)
CPT/HCPCS: 36415; 80048; 80061